=== PATIENT | male | born 1960 | race Caucasian/White ===

== ENCOUNTER 2020-02-09 14:20 | Emergency (ER) | payer MEDICAID ==
[~2020-02-09] VITALS: Ht 172.7 cm; Wt 63.5 kg
[2020-02-09 14:33] VITALS: BP 138/84
--- NOTE | 2020-02-09 15:29 | NUR ---
Patient being evaluated by DR BAKER at bedside.
[2020-02-09] MEDS ORDERED: KETOROLAC 30 MG/ML VIAL IM ONE (15:30)
--- NOTE | 2020-02-09 15:40 | NUR ---
59/M BIB SELF C/O FEVER, COUGH , BODY ACHES 7/10 X YESTERDAY. PMH: DENIES.
--- NOTE | 2020-02-09 15:41 | NUR ---
PT TAKEN TO X RAY.
--- NOTE | 2020-02-09 15:41 | NUR ---
COVID SWAB COLLECTED.
[2020-02-09 17:07] VITALS: BP 138/84
--- NOTE | 2020-02-09 17:07 | NUR ---
Patient discharged with v/s stable. Written and verbal after care instructions given and explained. Patient alert, oriented and verbalized understanding of instructions. Ambulatory with steady gait. All questions addressed prior to discharge. ID band removed. Patient advised to follow up with PMD. Rx of Acetaminophen and Naprosyn given. Patient educated on indication of medication including possible reaction and side effects. Opportunity to ask questions provided and answered.
== END 2020-02-09 17:07 | disposition home or self-care (01) ==
LOC: MED 14:20
DX: R50.9 Fever, unspecified (principal); Z20.828 Contact with and (suspected) exposure to other viral communicable diseases
CPT/HCPCS: 71045; 81002; 96372; 99284; J1885; U0003

== ENCOUNTER 2023-06-03 14:15 | Emergency (ER) | payer MEDICAID ==
[~2023-06-03] VITALS: Ht 172.7 cm; Wt 78.1 kg
[2023-06-03 14:32] VITALS: BP 138/76; PULSE 61; RESP 17; TEMP 98.5; O2SAT 98
[2023-06-03] MEDS ORDERED: METH-1681 PO (15:34)
[2023-06-03] MEDS ORDERED: LID5T TP (15:35)
[2023-06-03] MEDS ORDERED: NAPR-54 PO (15:35)
[2023-06-03] MEDS ORDERED: KETOROLAC 30 MG/ML VIAL IM ONE (15:55)
== END 2023-06-03 16:51 | disposition left against medical advice (07) ==
LOC: MED 14:15
DX: M54.50 Low back pain, unspecified (principal)
CPT/HCPCS: 99281; J1885

== ENCOUNTER 2023-06-03 17:24 | Emergency (ER) | payer MEDICAID ==
[~2023-06-03] VITALS: Ht 172.7 cm; Wt 77.1 kg
[~2023-06-03 17:24] MED LIST: LID5T TP; METH-1681 PO; NAPR-54 PO
[2023-06-03 17:47] VITALS: BP 134/94; PULSE 108; RESP 18; TEMP 98.7
[2023-06-03] MEDS: KETOROLAC 30 MG/ML VIAL IM ONE (18:01)
== END 2023-06-03 18:27 | disposition home or self-care (01) ==
LOC: MED 17:24
DX: S39.012A Strain of muscle, fascia and tendon of lower back, initial encounter (principal); I10 Essential (primary) hypertension; Z79.899 Other long term (current) drug therapy; X58.XXXA Exposure to other specified factors, initial encounter; Y93.89 Activity, other specified; Y92.89 Other specified places as the place of occurrence of the external cause; Y99.8 Other external cause status
CPT/HCPCS: 96372; 99283